=== PATIENT | female | born 1975 | race African-American/Black ===

== ENCOUNTER 2021-07-13 16:42 | Inpatient (IN) | payer OTHER ==
[~2021-07-13] VITALS: Ht 172.7 cm; Wt 73.9 kg
[~2021-07-13 16:42] MED LIST: ETOMIDATE 2MG/ML 10ML VIAL IV ONE; VECURONIUM BROMIDE 10 MG/VIAL IV ONE
[2021-07-13] MEDS ORDERED: NALOXONE HCL 1 MG/ML 2ML VIAL ONE (16:58)
[2021-07-13] MEDS ORDERED: NALOXONE HCL 1 MG/ML 2ML VIAL IV ONE ×2 (17:00)
[2021-07-13] MEDS ORDERED: SODIUM CHLORIDE 0.9% 1,000 ML IV ONE (17:00)
[2021-07-13] MEDS ORDERED: PROPOFOL 10MG/ML 100ML 100 ML IV ONE ×2 (17:15→20:45)
[2021-07-13] MEDS ORDERED: ETOMIDATE 2MG/ML 10ML VIAL IV ONE (17:15)
[2021-07-13 17:19] LABS: MEAN CORPUSCULAR HEMOGLOBIN 16.5 pg (28.0-32.0); MEAN CORPUSCULAR VOLUME 58.5 fL (81.0-99.0); MEAN PLATELET VOLUME 8.6 fl (7.4-10.4); PLATELET 447 x1000/uL (130-400); RED BLOOD CELL COUNT 3.29 mill/uL (4.2-5.4); RED CELL DISTRIBUTION WIDTH 22.1 % (11.6-14.6)
[2021-07-13 17:21] LABS: HEMATOCRIT. 19.3 % (36.0-48.0); HEMOGLOBIN. 5.4 g/dL (12.0-16.0)
[2021-07-13 17:24] LABS: CHLORIDE 106 mEq/L (98-107)
[2021-07-13 17:26] LABS: PROTHROMBIN TIME 10.8 sec (9.6-11.0)
[2021-07-13 17:29] LABS: ETHANOL BLOOD 17 mg/dL
[2021-07-13 17:57] LABS: PLATELET ESTIMATE INCREASED
[2021-07-13] MEDS ORDERED: PIPERACILLIN/TAZ 3.375G PREMIX 50 ML IV ONE (18:30)
[2021-07-13] MEDS ORDERED: METRONIDAZOLE 500 MG PREMIX 100 ML IV ONE (18:30)
[2021-07-13 18:35] LABS: BG BASE EXCESS -3.4 mmol/L (-2.0-2.0); BG CARBOXYHEMOGLOBIN 3.9 % (0.5-1.5); BG DEOXYHEMOGLOBIN 3.1 % (0.0-5.0); BG FRACTION INSPIRED OXYGEN 100; BG METHEMOGLOBIN 0.6 % (0.0-1.5); BG OXYGEN SATURATION 96.8 % (92.0-98.5); BG OXYHEMOGLOBIN 92.4 % (94.0-97.0); BG PCO2 41.5 mmHg (35.0-45.0); BG PH 7.342 (7.350-7.450); BG PO2 95.1 mmHg (75.0-100.0); BG TOTAL HEMOGLOBIN 6.3 g/dL (12.0-18.0); BG VENT MODE VENT - AC
[2021-07-13 19:40] LABS: CLARITY URINE CLEAR (CLEAR); COLOR URINE YELLOW (YELLOW); KETONES URINE NEGATIVE (NEGATIVE); LEUKOCYTE ESTERASE URINE NEGATIVE (NEGATIVE); NITRITE URINE NEGATIVE (NEGATIVE); OCCULT BLOOD URINE TRACE (NEGATIVE); PH URINE 6.5 (4.5-8.0); PROTEIN URINE TRACE (NEGATIVE); SPECIFIC GRAVITY URINE 1.008 (1.005-1.030); UROBILINOGEN URINE 0.2 E.U./dL (0.2-1.0)
[2021-07-13 19:54] LABS: *COCAINE SCREEN URINE PRESUMTIVE POSITIVE (NEGATIVE); CANNABINOID URINE SCREEN NEGATIVE (NEGATIVE); METHADONE URINE SCREEN NEGATIVE (NEGATIVE); OPIATES URINE SCREEN NEGATIVE (NEGATIVE); PHENCYCLIDINE URINE SCREEN PRESUMTIVE POSITIVE (NEGATIVE)
[2021-07-13 19:56] LABS: *AMPHETAMINES SCREEN URINE NEGATIVE (NEGATIVE); *BARBITURATES SCREEN URINE NEGATIVE (NEGATIVE); *BENZODIAZEPINES SCREEN URINE NEGATIVE (NEGATIVE)
[2021-07-13] MEDS ORDERED: MIDAZOLAM HCL 100 MG in DEXT 5% WATER 80 ML IV ONE (21:15)
[2021-07-13] MEDS ORDERED: MIDAZOLAM HCL 100 MG in SODIUM CHLORIDE 0.9% 80 ML IV ONE (21:30)
[2021-07-13] MEDS ORDERED: IPRATROPIUM/ALBUTEROL 0.5-3(2.5)MG/3ML NEB HHN PRN (23:00)
[2021-07-13] MEDS ORDERED: NITROGLYCERIN 0.4MG TABLET SL SL PRN (23:15)
[2021-07-13] MEDS ORDERED: GUAIFENESIN 200MG/10ML SUGAR FREE UDC PO PRN (23:15)
[2021-07-13] MEDS ORDERED: IPRATROPIUM/ALBUTEROL 0.5-3(2.5)MG/3ML NEB HHN SCH (23:15)
[2021-07-13] MEDS ORDERED: IPRATROPIUM/ALBUTEROL 0.5-3(2.5)MG/3ML NEB NEB PRN (23:15)
[2021-07-14] VITALS (98 sets, daily range): BP systolic 109–189; BP diastolic 63–115
[2021-07-14] MEDS ORDERED: PANTOPRAZOLE 80 MG in SODIUM CHLORIDE 0.9% 100 ML IV SCH ×2
[2021-07-14] MEDS: IPRATROPIUM/ALBUTEROL 0.5-3(2.5)MG/3ML NEB HHN SCH ×6 (00:14→20:59)
[2021-07-14] MEDS: PROPOFOL 10MG/ML 100ML 100 ML IV PRN ×2 (00:58→05:57)
[2021-07-14] MEDS: DEXT 5%/LACTATED RINGERS 1,000 ML IV SCH ×3 (01:24→20:12)
[2021-07-14] MEDS: DILTIAZEM HCL 60MG TABLET PO SCH ×5 (01:24→23:42)
[2021-07-14] MEDS: MIDAZOLAM HCL 100 MG in SODIUM CHLORIDE 0.9% 100 ML IV PRN (02:55)
[2021-07-14] MEDS ORDERED: VANCOMYCIN 1 G PREMIX 200 ML IV SCH ×2 (03:00)
[2021-07-14] MEDS ORDERED: PIPERACILLIN/TAZ 3.375G PREMIX 50 ML IV SCH (03:00)
[2021-07-14] MEDS ORDERED: PIPERACILLIN/TAZOBACTAM 3.375 G in DEXTROSE 5% WATER 50 ML IV SCH (03:00)
[2021-07-14] MEDS: CLONIDINE 0.1MG TABLET PO PRN (03:19)
[2021-07-14 07:23] LABS: FOLIC ACID (FOLATE) SERUM 11.7 ng/mL (>5.38)
[2021-07-14] MEDS: ENOXAPARIN 40MG/0.4ML SYR SUBCUT SCH (08:44)
[2021-07-14] MEDS: LISINOPRIL 20MG TABLET PO SCH ×2 (09:02→21:03)
[2021-07-14 09:04] LABS: HEMATOCRIT. 27.3 % (36.0-48.0); HEMOGLOBIN. 8.3 g/dL (12.0-16.0); MEAN CORPUSCULAR HEMOGLOBIN 19.2 pg (28.0-32.0); MEAN PLATELET VOLUME 8.6 fl (7.4-10.4); PLATELET 351 x1000/uL (130-400); RED BLOOD CELL COUNT 4.33 mill/uL (4.2-5.4); RED CELL DISTRIBUTION WIDTH 31.5 % (11.6-14.6)
[2021-07-14 09:13] LABS: CHLORIDE 104 mEq/L (98-107)
[2021-07-14 09:19] LABS: PHOSPHORUS 3.5 mg/dL (2.5-4.9)
[2021-07-14 09:22] LABS: CREATINE KINASE 365 IU/L (26-192)
[2021-07-14 09:26] LABS: CREATINE KINASE MB FRACTION 3.8 ng/mL (0.5-3.6)
[2021-07-14 10:26] LABS: BG BASE EXCESS 2.1 mmol/L (-2.0-2.0); BG CARBOXYHEMOGLOBIN 0.6 % (0.5-1.5); BG DEOXYHEMOGLOBIN 0.2 % (0.0-5.0); BG HCO3 ACT 26.5 mmol/L (22.0-26.0); BG METHEMOGLOBIN 0.6 % (0.0-1.5); BG OXYGEN SATURATION 99.8 % (92.0-98.5); BG OXYHEMOGLOBIN 98.6 % (94.0-97.0); BG PCO2 40.9 mmHg (35.0-45.0); BG PO2 386.8 mmHg (75.0-100.0); BG TOTAL HEMOGLOBIN 8.1 g/dL (12.0-18.0)
[2021-07-14] MEDS ORDERED: MAGNESIUM 4 G PREMIX 100 ML IV NR (11:30)
[2021-07-14] MEDS ORDERED: VANCOMYCIN 750 MG PREMIX 150 ML IV SCH (12:00)
[2021-07-14] MEDS ORDERED: POTASSIUM CHLORIDE INJ 60 MEQ in DEXT 5% WATER 470 ML IV NR (12:00)
[2021-07-14] MEDS: ACETAMINOPHEN 325MG TABLET PO PRN (12:22)
[2021-07-14] MEDS: PIPERACILLIN/TAZOBACTAM 3.375 G in DEXTROSE 5% WATER 50 ML IV SCH ×2 (13:31→21:03)
[2021-07-14] MEDS: VANCOMYCIN 750 MG PREMIX 150 ML IV SCH (16:51)
[2021-07-14 17:07] LABS: PLATELET ESTIMATE NORMAL
[2021-07-14] MEDS: PANTOPRAZOLE SODIUM 40 MG/VIAL IV SCH (17:09)
[2021-07-14] MEDS ORDERED: PROPOFOL 10MG/ML 100ML 100 ML IV PRN (17:45)
[2021-07-14] MEDS: FENTANYL CITRATE/PF 2,500 MCG in SODIUM CHLORIDE 0.9% 200 ML IV PRN (18:51)
[2021-07-14 21:20] LABS: CREATINE KINASE MB FRACTION 3.8 ng/mL (0.5-3.6)
[2021-07-15] VITALS (62 sets, daily range): BP systolic 92–149; BP diastolic 42–94
[2021-07-15] MEDS: IPRATROPIUM/ALBUTEROL 0.5-3(2.5)MG/3ML NEB HHN SCH ×6 (01:19→20:58)
[2021-07-15] MEDS: VANCOMYCIN 750 MG PREMIX 150 ML IV SCH ×2 (03:13→15:00)
[2021-07-15] MEDS: DILTIAZEM HCL 60MG TABLET PO SCH ×3 (05:08→18:00)
[2021-07-15] MEDS: PIPERACILLIN/TAZOBACTAM 3.375 G in DEXTROSE 5% WATER 50 ML IV SCH ×3 (05:08→22:26)
[2021-07-15 05:18] LABS: CHLORIDE 106 mEq/L (98-107)
[2021-07-15 05:19] LABS: HEMATOCRIT. 22.8 % (36.0-48.0); HEMOGLOBIN. 7.1 g/dL (12.0-16.0); MEAN CORPUSCULAR HEMOGLOBIN 19.3 pg (28.0-32.0); MEAN PLATELET VOLUME 8.6 fl (7.4-10.4); PLATELET 302 x1000/uL (130-400); RED BLOOD CELL COUNT 3.67 mill/uL (4.2-5.4); RED CELL DISTRIBUTION WIDTH 31.6 % (11.6-14.6)
[2021-07-15 08:12] LABS: BG BASE EXCESS 2.9 mmol/L (-2.0-2.0); BG CARBOXYHEMOGLOBIN 1.4 % (0.5-1.5); BG HCO3 ACT 27.6 mmol/L (22.0-26.0); BG METHEMOGLOBIN 0.5 % (0.0-1.5); BG OXYHEMOGLOBIN 97.1 % (94.0-97.0); BG PCO2 42.7 mmHg (35.0-45.0); BG PH 7.428 (7.350-7.450); BG PO2 134.3 mmHg (75.0-100.0); BG SAMPLE SITE RIGHT RADIAL; BG TOTAL HEMOGLOBIN 7.7 g/dL (12.0-18.0); BG VENT MODE VENT - AC
[2021-07-15] MEDS: ENOXAPARIN 40MG/0.4ML SYR SUBCUT SCH (09:00)
[2021-07-15 09:49] LABS: PLATELET ESTIMATE NORMAL
[2021-07-15] MEDS: PANTOPRAZOLE SODIUM 40 MG/VIAL IV SCH ×2 (09:59→17:00)
[2021-07-15] MEDS: LISINOPRIL 20MG TABLET PO SCH ×2 (10:00→20:51)
[2021-07-15] MEDS: FENTANYL CITRATE/PF 2,500 MCG in SODIUM CHLORIDE 0.9% 200 ML IV PRN (19:49)
[2021-07-15] MEDS: ACETAMINOPHEN 325MG TABLET PO PRN (22:29)
[2021-07-16] VITALS (55 sets, daily range): BP systolic 99–157; BP diastolic 52–119
[2021-07-16] MEDS: DEXT 5%/LACTATED RINGERS 1,000 ML IV SCH ×3 (00:04→17:52)
[2021-07-16] MEDS: IPRATROPIUM/ALBUTEROL 0.5-3(2.5)MG/3ML NEB HHN SCH ×6 (00:58→20:34)
[2021-07-16 05:56] LABS: CHLORIDE 107 mEq/L (98-107)
[2021-07-16 05:59] LABS: BASOPHILS % 0.3 % (0.0-2.0); EOSINOPHILS % 0.4 % (0.0-5.0); HEMATOCRIT. 24.8 % (36.0-48.0); HEMOGLOBIN. 7.7 g/dL (12.0-16.0); LYMPHOCYTES % 10.5 % (20.0-50.0); MEAN CORPUSCULAR HEMOGLOBIN 20.3 pg (28.0-32.0); MEAN CORPUSCULAR VOLUME 65.1 fL (81.0-99.0); MEAN PLATELET VOLUME 8.8 fl (7.4-10.4); MONOCYTES % 7.1 % (2.0-8.0); NEUTROPHILS % 81.7 % (40.0-76.0); PLATELET 274 x1000/uL (130-400); RED BLOOD CELL COUNT 3.81 mill/uL (4.2-5.4); RED CELL DISTRIBUTION WIDTH 33.4 % (11.6-14.6)
[2021-07-16] MEDS: DILTIAZEM HCL 60MG TABLET PO SCH ×4 (06:00→18:00)
[2021-07-16] MEDS: PIPERACILLIN/TAZOBACTAM 3.375 G in DEXTROSE 5% WATER 50 ML IV SCH ×3 (06:21→22:00)
[2021-07-16] MEDS: FERROUS SULFATE 300MG/5ML UDC PO SCH ×3 (06:56→17:52)
[2021-07-16] MEDS: VANCOMYCIN 750 MG PREMIX 150 ML IV SCH ×2 (08:02→19:06)
[2021-07-16] MEDS: PANTOPRAZOLE SODIUM 40 MG/VIAL IV SCH ×2 (09:41→17:52)
[2021-07-16] MEDS: LISINOPRIL 20MG TABLET PO SCH ×2 (09:41→21:00)
[2021-07-16] MEDS: ENOXAPARIN 40MG/0.4ML SYR SUBCUT SCH (09:41)
[2021-07-16 10:04] LABS: BG BASE EXCESS 1.8 mmol/L (-2.0-2.0); BG CARBOXYHEMOGLOBIN 0.3 % (0.5-1.5); BG DEOXYHEMOGLOBIN 1.3 % (0.0-5.0); BG FRACTION INSPIRED OXYGEN 40; BG HCO3 ACT 26.9 mmol/L (22.0-26.0); BG METHEMOGLOBIN 0.4 % (0.0-1.5); BG OXYGEN SATURATION 98.7 % (92.0-98.5); BG PCO2 44.9 mmHg (35.0-45.0); BG PH 7.396 (7.350-7.450); BG PO2 136.1 mmHg (75.0-100.0); BG VENT MODE VENT - AC
[2021-07-16 15:57] LABS: BG BASE EXCESS 1.6 mmol/L (-2.0-2.0); BG CARBOXYHEMOGLOBIN 0.3 % (0.5-1.5); BG DEOXYHEMOGLOBIN 2.4 % (0.0-5.0); BG FRACTION INSPIRED OXYGEN 40; BG HCO3 ACT 28.9 mmol/L (22.0-26.0); BG METHEMOGLOBIN 0.6 % (0.0-1.5); BG OXYGEN SATURATION 97.6 % (92.0-98.5); BG OXYHEMOGLOBIN 96.7 % (94.0-97.0); BG PH 7.293 (7.350-7.450); BG PO2 107.3 mmHg (75.0-100.0); BG TOTAL HEMOGLOBIN 9.2 g/dL (12.0-18.0); BG VENT MODE VENT - SIMV
[2021-07-17] VITALS (62 sets, daily range): BP systolic 95–153; BP diastolic 26–89
[2021-07-17] MEDS: IPRATROPIUM/ALBUTEROL 0.5-3(2.5)MG/3ML NEB HHN SCH ×6 (00:44→20:22)
[2021-07-17] MEDS: FENTANYL CITRATE/PF 2,500 MCG in SODIUM CHLORIDE 0.9% 200 ML IV PRN ×2 (00:53→17:06)
[2021-07-17] MEDS: MIDAZOLAM HCL 100 MG in SODIUM CHLORIDE 0.9% 100 ML IV PRN ×2 (02:26→17:07)
[2021-07-17 05:57] LABS: HEMATOCRIT. 24.2 % (36.0-48.0); HEMOGLOBIN. 7.6 g/dL (12.0-16.0); MEAN CORPUSCULAR HEMOGLOBIN 20.9 pg (28.0-32.0); MEAN PLATELET VOLUME 9.1 fl (7.4-10.4); PLATELET 279 x1000/uL (130-400); RED BLOOD CELL COUNT 3.66 mill/uL (4.2-5.4); RED CELL DISTRIBUTION WIDTH 34.1 % (11.6-14.6)
[2021-07-17] MEDS: PIPERACILLIN/TAZOBACTAM 3.375 G in DEXTROSE 5% WATER 50 ML IV SCH ×3 (06:00→22:12)
[2021-07-17] MEDS: DILTIAZEM HCL 60MG TABLET PO SCH ×5 (06:00→18:00)
[2021-07-17 06:15] LABS: CHLORIDE 106 mEq/L (98-107)
[2021-07-17] MEDS: FERROUS SULFATE 300MG/5ML UDC PO SCH ×3 (07:00→17:11)
[2021-07-17] MEDS: DEXT 5%/LACTATED RINGERS 1,000 ML IV SCH ×2 (07:15→20:35)
[2021-07-17] MEDS: LISINOPRIL 20MG TABLET PO SCH ×2 (09:00→21:14)
[2021-07-17] MEDS: VANCOMYCIN 750 MG PREMIX 150 ML IV SCH ×2 (09:19→21:15)
[2021-07-17] MEDS: PANTOPRAZOLE SODIUM 40 MG/VIAL IV SCH ×2 (09:19→17:12)
[2021-07-17 10:54] LABS: PLATELET ESTIMATE NORMAL
[2021-07-18] VITALS (94 sets, daily range): BP systolic 90–140; BP diastolic 49–85
[2021-07-18] MEDS: DILTIAZEM HCL 60MG TABLET PO SCH ×5 (00:29→23:33)
[2021-07-18] MEDS: IPRATROPIUM/ALBUTEROL 0.5-3(2.5)MG/3ML NEB HHN SCH ×7 (01:48→23:50)
[2021-07-18] MEDS: FENTANYL CITRATE/PF 2,500 MCG in SODIUM CHLORIDE 0.9% 200 ML IV PRN (04:16)
[2021-07-18 05:52] LABS: BASOPHILS % 0.3 % (0.0-2.0); EOSINOPHILS % 1.1 % (0.0-5.0); HEMATOCRIT. 24.8 % (36.0-48.0); HEMOGLOBIN. 7.7 g/dL (12.0-16.0); LYMPHOCYTES % 12.9 % (20.0-50.0); MEAN CORPUSCULAR HEMOGLOBIN 20.7 pg (28.0-32.0); MEAN CORPUSCULAR VOLUME 66.7 fL (81.0-99.0); MEAN PLATELET VOLUME 8.6 fl (7.4-10.4); MONOCYTES % 9.1 % (2.0-8.0); NEUTROPHILS % 76.6 % (40.0-76.0); PLATELET 299 x1000/uL (130-400); RED BLOOD CELL COUNT 3.72 mill/uL (4.2-5.4); RED CELL DISTRIBUTION WIDTH 34.4 % (11.6-14.6)
[2021-07-18] MEDS: PIPERACILLIN/TAZOBACTAM 3.375 G in DEXTROSE 5% WATER 50 ML IV SCH ×3 (06:13→22:55)
[2021-07-18 06:50] LABS: CHLORIDE 107 mEq/L (98-107)
[2021-07-18] MEDS: DEXT 5%/LACTATED RINGERS 1,000 ML IV SCH ×2 (06:56→19:15)
[2021-07-18] MEDS: FERROUS SULFATE 300MG/5ML UDC PO SCH ×3 (07:12→18:28)
[2021-07-18] MEDS: VANCOMYCIN 750 MG PREMIX 150 ML IV SCH ×2 (08:07→20:54)
[2021-07-18] MEDS: PANTOPRAZOLE SODIUM 40 MG/VIAL IV SCH ×2 (08:08→18:27)
[2021-07-18] MEDS: LISINOPRIL 20MG TABLET PO SCH ×2 (08:08→21:42)
[2021-07-18] MEDS: MIDAZOLAM HCL 100 MG in SODIUM CHLORIDE 0.9% 100 ML IV PRN (08:09)
[2021-07-18] MEDS ORDERED: POTASSIUM CHLORIDE INJ 40 MEQ in DEXT 5% WATER 500 ML IV ONE (11:00)
[2021-07-18] MEDS ORDERED: LIDOCAINE HCL 1% 30ML VIAL (10MG/ML) ONE (11:05)
[2021-07-18] MEDS ORDERED: KCL 20MEQ/100ML PREMIX 100 ML IV SCH (12:00)
[2021-07-18] MEDS: DOCUSATE SODIUM 100MG CAPSULE PO PRN ×2 (12:38→18:28)
[2021-07-18] MEDS ORDERED: IOHEXOL-300 100 ML BOTTLE ONE (15:02)
[2021-07-18] MEDS: ACETAMINOPHEN 325MG TABLET PO PRN (23:42)
[2021-07-19] VITALS (96 sets, daily range): BP systolic 91–165; BP diastolic 40–93
[2021-07-19] MEDS: IPRATROPIUM/ALBUTEROL 0.5-3(2.5)MG/3ML NEB HHN SCH ×5 (03:46→21:16)
[2021-07-19 05:56] LABS: CHLORIDE 107 mEq/L (98-107)
[2021-07-19 05:57] LABS: HEMATOCRIT. 27.2 % (36.0-48.0); HEMOGLOBIN. 8.3 g/dL (12.0-16.0); MEAN CORPUSCULAR HEMOGLOBIN 20.5 pg (28.0-32.0); MEAN CORPUSCULAR VOLUME 67.3 fL (81.0-99.0); MEAN PLATELET VOLUME 8.6 fl (7.4-10.4); PLATELET 378 x1000/uL (130-400); RED BLOOD CELL COUNT 4.05 mill/uL (4.2-5.4); RED CELL DISTRIBUTION WIDTH 33.8 % (11.6-14.6)
[2021-07-19] MEDS: DILTIAZEM HCL 60MG TABLET PO SCH ×4 (06:35→23:34)
[2021-07-19] MEDS: FERROUS SULFATE 300MG/5ML UDC PO SCH ×3 (06:35→17:38)
[2021-07-19] MEDS: ONDANSETRON HCL 4MG/2ML INJ IV PRN (09:18)
[2021-07-19] MEDS: PANTOPRAZOLE SODIUM 40 MG/VIAL IV SCH ×2 (09:18→17:38)
[2021-07-19] MEDS: LISINOPRIL 20MG TABLET PO SCH ×2 (09:18→20:56)
[2021-07-19 09:49] LABS: PLATELET ESTIMATE NORMAL
[2021-07-19 09:54] LABS: BG BASE EXCESS -1.8 mmol/L (-2.0-2.0); BG CARBOXYHEMOGLOBIN 0.6 % (0.5-1.5); BG DEOXYHEMOGLOBIN 8.3 % (0.0-5.0); BG HCO3 ACT 25.4 mmol/L (22.0-26.0); BG METHEMOGLOBIN 0.5 % (0.0-1.5); BG OXYGEN SATURATION 91.6 % (92.0-98.5); BG OXYHEMOGLOBIN 90.6 % (94.0-97.0); BG PH 7.275 (7.350-7.450); BG PO2 68.3 mmHg (75.0-100.0); BG SAMPLE SITE RIGHT RADIAL; BG TOTAL HEMOGLOBIN 9.7 g/dL (12.0-18.0); BG VENT MODE VENT - CPAP
[2021-07-19] MEDS: METHYLPREDNISOLONE SOD SUCC 40 MG/ML VIAL IV SCH ×2 (11:38→18:11)
[2021-07-19] MEDS: METOCLOPRAMIDE HCL 10MG/2ML VIAL IV PRN (12:08)
[2021-07-19] MEDS: DEXT 5%/LACTATED RINGERS 1,000 ML IV SCH (12:10)
[2021-07-19 12:42] LABS: BG BASE EXCESS -1.5 mmol/L (-2.0-2.0); BG CARBOXYHEMOGLOBIN 0.5 % (0.5-1.5); BG DEOXYHEMOGLOBIN 4.8 % (0.0-5.0); BG HCO3 ACT 25.4 mmol/L (22.0-26.0); BG METHEMOGLOBIN 0.2 % (0.0-1.5); BG OXYGEN SATURATION 95.2 % (92.0-98.5); BG OXYHEMOGLOBIN 94.5 % (94.0-97.0); BG PCO2 53.6 mmHg (35.0-45.0); BG PH 7.293 (7.350-7.450); BG PO2 81.1 mmHg (75.0-100.0); BG SAMPLE SITE RIGHT RADIAL; BG TOTAL HEMOGLOBIN 9.7 g/dL (12.0-18.0); BG VENT MODE VENT - CPAP
[2021-07-19] MEDS: LORAZEPAM 2MG/ML CPJ IV PRN ×2 (13:19→23:56)
[2021-07-19] MEDS: FENTANYL CITRATE/PF 2,500 MCG in SODIUM CHLORIDE 0.9% 200 ML IV PRN (15:28)
[2021-07-19] MEDS: DOCUSATE SODIUM SUGAR FREE 100MG/10ML UDC NG SCH (18:11)
[2021-07-20] VITALS (94 sets, daily range): BP systolic 108–162; BP diastolic 43–100
[2021-07-20] MEDS: IPRATROPIUM/ALBUTEROL 0.5-3(2.5)MG/3ML NEB HHN SCH ×7 (00:32→21:29)
[2021-07-20] MEDS: DEXT 5%/LACTATED RINGERS 1,000 ML IV SCH ×2 (02:30→14:44)
[2021-07-20] MEDS: METHYLPREDNISOLONE SOD SUCC 40 MG/ML VIAL IV SCH ×3 (03:16→18:03)
[2021-07-20] MEDS: FENTANYL CITRATE/PF 2,500 MCG in SODIUM CHLORIDE 0.9% 200 ML IV PRN ×2 (04:44→23:37)
[2021-07-20 05:25] LABS: HEMATOCRIT. 28.3 % (36.0-48.0); HEMOGLOBIN. 8.4 g/dL (12.0-16.0); MEAN CORPUSCULAR HEMOGLOBIN 20.1 pg (28.0-32.0); MEAN CORPUSCULAR VOLUME 67.5 fL (81.0-99.0); MEAN PLATELET VOLUME 8.5 fl (7.4-10.4); PLATELET 405 x1000/uL (130-400); RED BLOOD CELL COUNT 4.19 mill/uL (4.2-5.4); RED CELL DISTRIBUTION WIDTH 33.7 % (11.6-14.6)
[2021-07-20 05:38] LABS: CHLORIDE 108 mEq/L (98-107)
[2021-07-20] MEDS: DILTIAZEM HCL 60MG TABLET PO SCH ×4 (06:25→23:35)
[2021-07-20] MEDS: FERROUS SULFATE 300MG/5ML UDC PO SCH ×3 (06:54→17:52)
[2021-07-20] MEDS: DOCUSATE SODIUM SUGAR FREE 100MG/10ML UDC NG SCH (08:22)
[2021-07-20] MEDS: METOCLOPRAMIDE HCL 10MG/2ML VIAL IV PRN ×2 (08:22→17:52)
[2021-07-20] MEDS: PANTOPRAZOLE SODIUM 40 MG/VIAL IV SCH ×2 (08:22→17:52)
[2021-07-20] MEDS: LISINOPRIL 20MG TABLET PO SCH ×2 (08:22→20:43)
[2021-07-20] MEDS ORDERED: BISACODYL 10MG SUPP PR PRN (11:15)
[2021-07-20] MEDS: MAGNESIUM/ALUMINUM HYDROXIDE/SIMETHICONE 30ML UDC PO PRN (11:21)
[2021-07-20] MEDS: ONDANSETRON HCL 4MG/2ML INJ IV PRN (11:21)
[2021-07-20 12:46] LABS: HEMOGLOBIN 8.5 g/dL (12.0-16.0); MEAN CORPUSCULAR HEMOGLOBIN 19.8 pg (28.0-32.0); MEAN CORPUSCULAR VOLUME 67.6 fL (81.0-99.0); PLATELET 486 x1000/uL (130-400); RED BLOOD CELL COUNT 4.29 mill/uL (4.2-5.4)
[2021-07-20 14:25] LABS: BG BASE EXCESS 0.8 mmol/L (-2.0-2.0); BG CARBOXYHEMOGLOBIN 0.4 % (0.5-1.5); BG DEOXYHEMOGLOBIN 6.8 % (0.0-5.0); BG FRACTION INSPIRED OXYGEN 40; BG HCO3 ACT 28.2 mmol/L (22.0-26.0); BG METHEMOGLOBIN 0.3 % (0.0-1.5); BG OXYGEN SATURATION 93.2 % (92.0-98.5); BG OXYHEMOGLOBIN 92.5 % (94.0-97.0); BG PCO2 60.4 mmHg (35.0-45.0); BG PH 7.287 (7.350-7.450); BG PO2 72.6 mmHg (75.0-100.0); BG SAMPLE SITE RIGHT BRACHIAL; BG TOTAL HEMOGLOBIN 9.7 g/dL (12.0-18.0); BG VENT MODE VENT - CPAP
[2021-07-20] MEDS: LORAZEPAM 2MG/ML CPJ IV PRN ×2 (14:44→17:53)
[2021-07-21] VITALS (96 sets, daily range): BP systolic 109–159; BP diastolic 60–115
[2021-07-21] MEDS: IPRATROPIUM/ALBUTEROL 0.5-3(2.5)MG/3ML NEB HHN SCH ×7 (00:48→23:37)
[2021-07-21] MEDS: LORAZEPAM 2MG/ML CPJ IV PRN ×3 (05:33→17:44)
[2021-07-21] MEDS: DEXT 5%/LACTATED RINGERS 1,000 ML IV SCH ×2 (05:33→17:58)
[2021-07-21] MEDS: METHYLPREDNISOLONE SOD SUCC 40 MG/ML VIAL IV SCH ×3 (05:33→18:07)
[2021-07-21] MEDS: METOCLOPRAMIDE HCL 10MG/2ML VIAL IV PRN ×3 (05:33→17:44)
[2021-07-21] MEDS: DILTIAZEM HCL 60MG TABLET PO SCH ×4 (05:35→23:29)
[2021-07-21 06:00] LABS: BASOPHILS % 0.2 % (0.0-2.0); HEMATOCRIT. 27.7 % (36.0-48.0); HEMOGLOBIN. 8.2 g/dL (12.0-16.0); LYMPHOCYTES % 10.3 % (20.0-50.0); MEAN CORPUSCULAR HEMOGLOBIN 20.1 pg (28.0-32.0); MEAN CORPUSCULAR VOLUME 67.9 fL (81.0-99.0); MEAN PLATELET VOLUME 8.5 fl (7.4-10.4); MONOCYTES % 1.9 % (2.0-8.0); NEUTROPHILS % 87.6 % (40.0-76.0); PLATELET 439 x1000/uL (130-400); RED BLOOD CELL COUNT 4.08 mill/uL (4.2-5.4); RED CELL DISTRIBUTION WIDTH 33.2 % (11.6-14.6)
[2021-07-21 06:08] LABS: CHLORIDE 108 mEq/L (98-107)
[2021-07-21] MEDS: FERROUS SULFATE 300MG/5ML UDC PO SCH ×3 (07:38→17:44)
[2021-07-21] MEDS: PANTOPRAZOLE SODIUM 40 MG/VIAL IV SCH ×2 (09:10→17:57)
[2021-07-21] MEDS: DOCUSATE SODIUM SUGAR FREE 100MG/10ML UDC NG SCH (09:10)
[2021-07-21] MEDS: LISINOPRIL 20MG TABLET PO SCH ×2 (09:10→20:57)
[2021-07-21] MEDS: FENTANYL CITRATE/PF 2,500 MCG in SODIUM CHLORIDE 0.9% 200 ML IV PRN (09:12)
[2021-07-21] MEDS ORDERED: DOCUSATE SODIUM 100MG CAPSULE NG SCH (10:45)
[2021-07-21] MEDS ORDERED: DOCUSATE SODIUM SUGAR FREE 100MG/10ML UDC NG SCH (11:00)
[2021-07-21] MEDS: POLYETHYLENE GLYCOL 3350 (17GM) 1 DOSE PACK PO SCH (12:00)
[2021-07-21] MEDS: CLONIDINE 0.1MG TABLET PO PRN (12:04)
[2021-07-21] MEDS ORDERED: FUROSEMIDE 40MG/4ML VIAL IVP SCH (13:00)
[2021-07-21 14:29] LABS: BG BASE EXCESS 0.6 mmol/L (-2.0-2.0); BG CARBOXYHEMOGLOBIN 0.4 % (0.5-1.5); BG DEOXYHEMOGLOBIN 2.7 % (0.0-5.0); BG FRACTION INSPIRED OXYGEN 40; BG HCO3 ACT 27.7 mmol/L (22.0-26.0); BG METHEMOGLOBIN 0.3 % (0.0-1.5); BG OXYGEN SATURATION 97.3 % (92.0-98.5); BG OXYHEMOGLOBIN 96.6 % (94.0-97.0); BG PCO2 57.1 mmHg (35.0-45.0); BG PH 7.303 (7.350-7.450); BG PO2 97.4 mmHg (75.0-100.0); BG SAMPLE SITE RIGHT RADIAL; BG TOTAL HEMOGLOBIN 9.9 g/dL (12.0-18.0); BG VENT MODE VENT - CPAP
[2021-07-21] MEDS: MAGNESIUM/ALUMINUM HYDROXIDE/SIMETHICONE 30ML UDC PO PRN (17:44)
[2021-07-22] VITALS (93 sets, daily range): BP systolic 113–168; BP diastolic 37–126
[2021-07-22] MEDS: FENTANYL CITRATE/PF 2,500 MCG in SODIUM CHLORIDE 0.9% 200 ML IV PRN (01:14)
[2021-07-22] MEDS: METHYLPREDNISOLONE SOD SUCC 40 MG/ML VIAL IV SCH ×3 (02:41→18:04)
[2021-07-22] MEDS: IPRATROPIUM/ALBUTEROL 0.5-3(2.5)MG/3ML NEB HHN SCH ×5 (03:01→21:27)
[2021-07-22 05:48] LABS: BASOPHILS % 0.2 % (0.0-2.0); HEMATOCRIT. 28.7 % (36.0-48.0); HEMOGLOBIN. 8.6 g/dL (12.0-16.0); LYMPHOCYTES % 8.6 % (20.0-50.0); MEAN CORPUSCULAR HEMOGLOBIN 20.2 pg (28.0-32.0); MEAN CORPUSCULAR VOLUME 67.1 fL (81.0-99.0); MEAN PLATELET VOLUME 8.8 fl (7.4-10.4); MONOCYTES % 3.2 % (2.0-8.0); PLATELET 506 x1000/uL (130-400); RED BLOOD CELL COUNT 4.27 mill/uL (4.2-5.4); RED CELL DISTRIBUTION WIDTH 33.8 % (11.6-14.6)
[2021-07-22 05:50] LABS: CHLORIDE 105 mEq/L (98-107)
[2021-07-22 06:00] LABS: CREATINE KINASE 303 IU/L (26-192)
[2021-07-22] MEDS: FERROUS SULFATE 300MG/5ML UDC PO SCH ×3 (06:15→18:04)
[2021-07-22] MEDS: DEXT 5%/LACTATED RINGERS 1,000 ML IV SCH ×2 (06:15→18:09)
[2021-07-22] MEDS: DILTIAZEM HCL 60MG TABLET PO SCH ×3 (06:16→18:05)
[2021-07-22] MEDS: PANTOPRAZOLE SODIUM 40 MG/VIAL IV SCH ×2 (09:26→18:04)
[2021-07-22] MEDS: METOCLOPRAMIDE HCL 10MG/2ML VIAL IV PRN ×2 (09:26→18:04)
[2021-07-22] MEDS: DOCUSATE SODIUM SUGAR FREE 100MG/10ML UDC NG SCH (09:27)
[2021-07-22] MEDS: POLYETHYLENE GLYCOL 3350 (17GM) 1 DOSE PACK PO SCH (09:27)
[2021-07-22] MEDS: CLONIDINE 0.1MG TABLET PO PRN ×2 (09:27→18:09)
[2021-07-22] MEDS: MAGNESIUM/ALUMINUM HYDROXIDE/SIMETHICONE 30ML UDC PO PRN (09:27)
[2021-07-22] MEDS: LISINOPRIL 20MG TABLET PO SCH ×2 (09:28→20:46)
[2021-07-22] MEDS: ONDANSETRON HCL 4MG/2ML INJ IV PRN ×2 (11:05→18:33)
[2021-07-22 11:23] LABS: BG BASE EXCESS 5.7 mmol/L (-2.0-2.0); BG CARBOXYHEMOGLOBIN 0.1 % (0.5-1.5); BG DEOXYHEMOGLOBIN 6.6 % (0.0-5.0); BG FRACTION INSPIRED OXYGEN 40; BG HCO3 ACT 32.8 mmol/L (22.0-26.0); BG METHEMOGLOBIN 0.3 % (0.0-1.5); BG OXYGEN SATURATION 93.4 % (92.0-98.5); BG PCO2 62.3 mmHg (35.0-45.0); BG PH 7.339 (7.350-7.450); BG PO2 69.2 mmHg (75.0-100.0); BG SAMPLE SITE RIGHT RADIAL; BG VENT MODE VENT - CPAP
[2021-07-22] MEDS ORDERED: SORBITOL 70% SOLN 30ML PO NR (16:00)
[2021-07-22 18:03] LABS: BG BASE EXCESS 6.4 mmol/L (-2.0-2.0); BG CARBOXYHEMOGLOBIN 0.3 % (0.5-1.5); BG DEOXYHEMOGLOBIN 7.5 % (0.0-5.0); BG FRACTION INSPIRED OXYGEN 40; BG METHEMOGLOBIN 0.3 % (0.0-1.5); BG OXYGEN SATURATION 92.5 % (92.0-98.5); BG OXYHEMOGLOBIN 91.9 % (94.0-97.0); BG PCO2 51.9 mmHg (35.0-45.0); BG PH 7.408 (7.350-7.450); BG PO2 63.5 mmHg (75.0-100.0); BG SAMPLE SITE RIGHT RADIAL; BG TOTAL HEMOGLOBIN 9.6 g/dL (12.0-18.0); BG VENT MODE COOL AEROSOL
[2021-07-22] MEDS: FOLIC ACID 1MG TABLET PO SCH (18:04)
[2021-07-22] MEDS: THIAMINE HCL 100MG TABLET PO SCH (18:05)
[2021-07-23] VITALS (85 sets, daily range): BP systolic 108–188; BP diastolic 52–130
[2021-07-23] MEDS: DILTIAZEM HCL 60MG TABLET PO SCH ×5 (00:50→23:34)
[2021-07-23] MEDS: IPRATROPIUM/ALBUTEROL 0.5-3(2.5)MG/3ML NEB HHN SCH ×6 (01:12→20:00)
[2021-07-23] MEDS: METHYLPREDNISOLONE SOD SUCC 40 MG/ML VIAL IV SCH ×3 (03:00→22:41)
[2021-07-23 06:00] LABS: CHLORIDE 106 mEq/L (98-107)
[2021-07-23 06:05] LABS: HEMATOCRIT. 26.2 % (36.0-48.0); HEMOGLOBIN. 7.7 g/dL (12.0-16.0); LYMPHOCYTES % 8.5 % (20.0-50.0); MEAN CORPUSCULAR HEMOGLOBIN 19.9 pg (28.0-32.0); MEAN CORPUSCULAR VOLUME 67.1 fL (81.0-99.0); MEAN PLATELET VOLUME 8.4 fl (7.4-10.4); MONOCYTES % 4.1 % (2.0-8.0); NEUTROPHILS % 87.4 % (40.0-76.0); PLATELET 443 x1000/uL (130-400); RED CELL DISTRIBUTION WIDTH 34.3 % (11.6-14.6)
[2021-07-23] MEDS: FERROUS SULFATE 300MG/5ML UDC PO SCH ×3 (06:36→17:30)
[2021-07-23] MEDS: PANTOPRAZOLE SODIUM 40 MG/VIAL IV SCH ×2 (08:44→17:29)
[2021-07-23] MEDS: THIAMINE HCL 100MG TABLET PO SCH (08:44)
[2021-07-23] MEDS: DOCUSATE SODIUM SUGAR FREE 100MG/10ML UDC NG SCH (08:44)
[2021-07-23] MEDS: LISINOPRIL 20MG TABLET PO SCH ×2 (08:45→21:12)
[2021-07-23] MEDS: FOLIC ACID 1MG TABLET PO SCH (08:45)
[2021-07-23] MEDS: POLYETHYLENE GLYCOL 3350 (17GM) 1 DOSE PACK PO SCH (08:45)
[2021-07-23] MEDS: LORAZEPAM 2MG/ML CPJ IV PRN ×2 (12:40→20:32)
[2021-07-23] MEDS: CLONIDINE 0.1MG TABLET PO PRN ×2 (15:07→22:44)
[2021-07-23] MEDS: HALOPERIDOL LACTATE 5MG/ML VIAL IM PRN (21:00)
[2021-07-24] VITALS (7 sets, daily range): BP systolic 123–198; BP diastolic 45–92
[2021-07-24] MEDS: LORAZEPAM 2MG/ML CPJ IV PRN ×2 (00:41→04:58)
[2021-07-24] MEDS: CLONIDINE 0.1MG TABLET PO PRN ×3 (04:56→18:40)
[2021-07-24] MEDS: DILTIAZEM HCL 60MG TABLET PO SCH ×3 (05:59→18:00)
[2021-07-24] MEDS: METHYLPREDNISOLONE SOD SUCC 40 MG/ML VIAL IV SCH ×3 (05:59→22:38)
[2021-07-24] MEDS: HALOPERIDOL LACTATE 5MG/ML VIAL IM PRN ×2 (05:59→15:54)
[2021-07-24] MEDS: FERROUS SULFATE 300MG/5ML UDC PO SCH ×3 (07:50→17:50)
[2021-07-24] MEDS: IPRATROPIUM/ALBUTEROL 0.5-3(2.5)MG/3ML NEB HHN SCH ×4 (08:14→21:12)
[2021-07-24] MEDS: POLYETHYLENE GLYCOL 3350 (17GM) 1 DOSE PACK PO SCH (09:00)
[2021-07-24] MEDS: DOCUSATE SODIUM SUGAR FREE 100MG/10ML UDC NG SCH (09:00)
[2021-07-24] MEDS: FOLIC ACID 1MG TABLET PO SCH (09:00)
[2021-07-24] MEDS: PANTOPRAZOLE SODIUM 40 MG/VIAL IV SCH ×2 (09:23→18:36)
[2021-07-24] MEDS: LISINOPRIL 20MG TABLET PO SCH ×2 (09:24→21:00)
[2021-07-24] MEDS: THIAMINE HCL 100MG TABLET PO SCH (09:24)
[2021-07-24] MEDS: DEXTROSE 5% WATER 1,000 ML IV SCH (15:36)
[2021-07-24] MEDS: ACETAMINOPHEN 325MG TABLET PO PRN (15:51)
[2021-07-24 16:16] LABS: HEMATOCRIT. 25.1 % (36.0-48.0); HEMOGLOBIN. 7.8 g/dL (12.0-16.0); MEAN CORPUSCULAR HEMOGLOBIN 20.4 pg (28.0-32.0); MEAN CORPUSCULAR VOLUME 66.2 fL (81.0-99.0); MEAN PLATELET VOLUME 8.7 fl (7.4-10.4); PLATELET 459 x1000/uL (130-400); RED BLOOD CELL COUNT 3.79 mill/uL (4.2-5.4); RED CELL DISTRIBUTION WIDTH 35.8 % (11.6-14.6)
[2021-07-24 16:24] LABS: CHLORIDE 102 mEq/L (98-107)
[2021-07-24 16:33] LABS: CREATINE KINASE 287 IU/L (26-192)
[2021-07-24 16:49] LABS: HEPATITIS B SURFACE ANTIGEN NEGATIVE
[2021-07-24 18:15] LABS: NUCLEATED RED BLOOD CELLS 1 /100 WBC; PLATELET ESTIMATE INCREASED
[2021-07-24] MEDS ORDERED: MAGNESIUM 2 G PREMIX 50 ML IV ONE (21:00)
[2021-07-25] VITALS: BP 106/40
[2021-07-25] MEDS: IPRATROPIUM/ALBUTEROL 0.5-3(2.5)MG/3ML NEB HHN SCH ×5 (00:25→15:42)
[2021-07-25] MEDS: DILTIAZEM HCL 60MG TABLET PO SCH ×3 (06:00→13:44)
[2021-07-25 06:46] LABS: BASOPHILS % 0.1 % (0.0-2.0); HEMATOCRIT. 27.3 % (36.0-48.0); HEMOGLOBIN. 8.3 g/dL (12.0-16.0); LYMPHOCYTES % 14.2 % (20.0-50.0); MEAN CORPUSCULAR HEMOGLOBIN 20.1 pg (28.0-32.0); MEAN CORPUSCULAR VOLUME 65.8 fL (81.0-99.0); MEAN PLATELET VOLUME 8.6 fl (7.4-10.4); MONOCYTES % 3.4 % (2.0-8.0); NEUTROPHILS % 82.3 % (40.0-76.0); PLATELET 533 x1000/uL (130-400); RED BLOOD CELL COUNT 4.15 mill/uL (4.2-5.4); RED CELL DISTRIBUTION WIDTH 34.5 % (11.6-14.6)
[2021-07-25] MEDS: METHYLPREDNISOLONE SOD SUCC 40 MG/ML VIAL IV SCH ×2 (06:55→13:43)
[2021-07-25] MEDS: DEXTROSE 5% WATER 1,000 ML IV SCH (06:55)
[2021-07-25 07:23] LABS: CHLORIDE 99 mEq/L (98-107)
[2021-07-25 08:00] VITALS: BP 178/78
[2021-07-25] MEDS: PANTOPRAZOLE SODIUM 40 MG/VIAL IV SCH (08:41)
[2021-07-25] MEDS: THIAMINE HCL 100MG TABLET PO SCH (10:03)
[2021-07-25] MEDS: LISINOPRIL 20MG TABLET PO SCH (10:03)
[2021-07-25] MEDS: FOLIC ACID 1MG TABLET PO SCH (10:03)
[2021-07-25] MEDS: FERROUS SULFATE 300MG/5ML UDC PO SCH ×2 (10:04→12:50)
[2021-07-25] MEDS: DOCUSATE SODIUM SUGAR FREE 100MG/10ML UDC NG SCH (10:04)
[2021-07-25] MEDS: POLYETHYLENE GLYCOL 3350 (17GM) 1 DOSE PACK PO SCH (10:04)
[2021-07-25 12:30] VITALS: BP 142/84
[2021-07-25 16:00] VITALS: BP_SYST 120; BP_SYST 143; BP_DIAS 63; BP_DIAS 84
[2021-07-25] MEDS ORDERED: METHYLPREDNISOLONE SOD SUCC 40 MG/ML VIAL IV SCH (22:00)
== END 2021-07-25 16:54 | disposition left against medical advice (07) | DRG 720 ==
LOC: ER 16:42 → EDBD 21:04 → MICUNO 21:04 → EDBEDREQTM 21:06 → EDBEDREQ 21:06 → ENRESERV 22:45 → 6WST 07-23 23:50
PROVIDERS: ADMIT Internal Medicine; ATTEND Internal Medicine
PROC: 5A1955Z Respiratory Ventilation, Greater than 96 Consecutive Hours (ICD-10-PCS; principal; 2021-07-13)
PROC: 0BH17EZ Insertion of Endotracheal Airway into Trachea, Via Natural or Artificial Opening (ICD-10-PCS; 2021-07-13)
PROC: 30233N1 Transfusion of Nonautologous Red Blood Cells into Peripheral Vein, Percutaneous Approach (ICD-10-PCS; 2021-07-14)
PROC: B54MZZA Ultrasonography of Right Upper Extremity Veins, Guidance (ICD-10-PCS; 2021-07-18)
PROC: 05HY33Z Insertion of Infusion Device into Upper Vein, Percutaneous Approach (ICD-10-PCS; 2021-07-18)
DX: A41.9 Sepsis, unspecified organism (principal); J96.00 Acute respiratory failure, unspecified whether with hypoxia or hypercapnia; G92.8 Other toxic encephalopathy; F10.10 Alcohol abuse, uncomplicated; D25.9 Leiomyoma of uterus, unspecified; D50.0 Iron deficiency anemia secondary to blood loss (chronic); E87.8 Other disorders of electrolyte and fluid balance, not elsewhere classified; N94.6 Dysmenorrhea, unspecified; J98.11 Atelectasis; R65.20 Severe sepsis without septic shock; R74.01 Elevation of levels of liver transaminase levels; I11.9 Hypertensive heart disease without heart failure; T40.5X1A Poisoning by cocaine, accidental (unintentional), initial encounter; T40.991A Poisoning by other psychodysleptics [hallucinogens], accidental (unintentional), initial encounter; Y92.89 Other specified places as the place of occurrence of the external cause; Z71.51 Drug abuse counseling and surveillance of drug abuser
CPT/HCPCS: 36415; 36600; 71045; 71260; 74177; 76830; 76856; 76937; 80048; 80053; 80061; 80202; 80305; 80320; 81003; 82140; 82270; 82375; 82550; 82553; 82607; 82728; 82746; 82805; 82962; 83036; 83540; 83550; 83605; 83735; 84100; 84450; 84478; 84484; 85025; 85027; 85044; 86705; 86709; 86803; 86850; 86900; 86920; 87070; 87340; 92610; 93005; 93306; 93970; 94002; 94003; 94640; 97110; 97162; 97166; 97530; 99291; A6261; C1725; C1893; C9113; J1630; J1650; J1940; J2060; J2250; J2310; J2405; J2543; J2704; J2765; J2920; J3010; J3370; J3475; J3480; J3490; J7030; J7040; J7050; J7060; J7070; P9016; Q9967; A4315; G0480